=== PATIENT | male | born 1990 | race Caucasian/White ===

== ENCOUNTER 2023-11-30 05:23 | Emergency (ER) | payer SELFPAY ==
[~2023-11-30] VITALS: Ht 188 cm; Wt 95.5 kg
[2023-11-30 05:29] VITALS: BP 140/80; TEMP 97.6; O2SAT 100
[2023-11-30] MEDS: IBUPROFEN 600MG TAB PO ONE (06:26)
== END 2023-11-30 07:40 | disposition home or self-care (01) ==
LOC: M ED 05:23
DX: S93.402A Sprain of unspecified ligament of left ankle, initial encounter (principal); M25.472 Effusion, left ankle; Y92.410 Unspecified street and highway as the place of occurrence of the external cause; Y93.9 Activity, unspecified; Y99.9 Unspecified external cause status; F17.210 Nicotine dependence, cigarettes, uncomplicated